=== PATIENT | male | born 1990 | race Two or more races ===

== ENCOUNTER 2021-05-23 10:18 | Inpatient (IN) | payer OTHER ==
[~2021-05-23] VITALS: Ht 170.2 cm; Wt 67.8 kg
[2021-05-23] MEDS ORDERED: PEG 3350/NA SULF,BICARB,CL/KCL 4000 ML SOLUTION PO ONE (13:15)
[2021-05-23 13:30] LABS: BASOPHILS % (AUTO) 0.2 % (0.0-2.0); EOSINOPHILS % (AUTO) 0.3 % (1.0-6.0); HEMATOCRIT 50.4 % (41-53); LYMPHOCYTES # (AUTO) 1.9 K/uL (1.0-4.8); LYMPHOCYTES % (AUTO) 27.1 % (22.0-44.0); MEAN CORPUSCULAR HEMOGLOBIN 31.4 pg (26.0-34.0); MEAN CORPUSCULAR HGB CONC 33.7 G/dL (31.0-37.0); MEAN CORPUSCULAR VOLUME 93 fL (80-100); MONOCYTES # (AUTO) 0.5 K/uL (0.1-1.0); MONOCYTES % (AUTO) 7.2 % (2.0-9.0); NEUTROPHILS # (AUTO) 4.5 K/uL (1.8-7.7); NEUTROPHILS % (AUTO) 65.2 % (40.0-70.0); PLATELET COUNT (AUTO) 224 K/uL (150-450); RED CELL DISTRIBUTION WIDTH 13.5 % (11.5-14.5)
[2021-05-23 13:39] LABS: ANION GAP 8 mmol/L (8-16); CALCIUM, TOTAL 9.4 mg/dL (8.8-10.5); CARBON DIOXIDE 31 mmol/L (22-29); CHLORIDE 102 mmol/L (98-107); CREATININE 1.04 mg/dL (0.60-1.30); GLOMERULAR FILTR. RATE CALC > 60 mL/min (>60); GLUCOSE,RANDOM 95 mg/dL (70-110); POTASSIUM 4.8 mmol/L (3.5-5.1); SODIUM SERUM 141 mmol/L (136-145); UREA NITROGEN, BLOOD 14 mg/dL (7-18)
[2021-05-23 13:45] LABS: COVID AG,FIA SOURCE NASOPHARYNGEAL
[2021-05-23 13:45] LABS: ALANINE AMINOTRANSFERASE 32 U/L (12-78); ALKALINE PHOSPHATASE 138 U/L (46-116); ASPARTATE AMINOTRANSFERASE 21 U/L (15-37)
[2021-05-23] MEDS ORDERED: ONDANSETRON HCL 4 MG/2 ML VIAL IVP PRN (13:45)
[2021-05-23] MEDS ORDERED: 0.9% SODIUM CHLORIDE 10 ML SYRINGE IVP PRN (13:45)
[2021-05-23] MEDS ORDERED: ACETAMINOPHEN 325 MG TABLET PO PRN (13:45)
[2021-05-23 13:46] LABS: ACETAMINOPHEN < 2 mcg/mL (10-30)
[2021-05-23 13:56] LABS: SALICYLATE 1.4 mg/dL (2.8-20.0)
[2021-05-23] MEDS: RINGERS SOLUTION,LACTATED 1,000 ML IV SCH (14:40)
[2021-05-23 16:15] VITALS: BP 117/75
[2021-05-23 19:30] VITALS: BP 119/66
[2021-05-23 22:57] VITALS: BP 116/64
[2021-05-24] MEDS: RINGERS SOLUTION,LACTATED 1,000 ML IV SCH ×2 (00:04→10:10)
[2021-05-24 04:47] VITALS: BP 116/78
[2021-05-24 06:45] LABS: AMPHET/METH SCREEN,URINE POSITIVE (NEGATIVE); BARBITURATE SCREEN, URINE NEGATIVE (NEGATIVE); BENZODIAZEPINES SCREEN,URINE NEGATIVE (NEGATIVE); CANNABINOID SCREEN,URINE NEGATIVE (NEGATIVE); COCAINE SCREEN,URINE NEGATIVE (NEGATIVE); METHADONE SCREEN, URINE NEGATIVE (NEGATIVE); OPIATE SCREEN,URINE NEGATIVE (NEGATIVE)
[2021-05-24 06:47] LABS: PHENCYCLIDINE SCREEN,URINE NEGATIVE (NEGATIVE)
[2021-05-24 07:53] VITALS: BP 108/67
[2021-05-24] MEDS ORDERED: MAGNESIUM HYDROXIDE SUSPENSION 30 ML UDCUP PO SCH (11:00)
[2021-05-24] MEDS ORDERED: POLYETHYLENE GLYCOL 3350 17 GM PACKET PO SCH (11:00)
[2021-05-24] MEDS ORDERED: BISACODYL 10 MG RECTAL RECTAL SUPPOSITORY PR PRN (11:00)
[2021-05-24] MEDS ORDERED: DOCUSATE SODIUM 100 MG CAPSULE PO SCH (11:00)
[2021-05-24 15:34] VITALS: BP 108/56
[2021-05-24] MEDS ORDERED: LOPERAMIDE HCL 2 MG CAPSULE PO PRN (16:15)
[2021-05-24 19:50] VITALS: BP 102/58
[2021-05-25 04:15] VITALS: BP 114/57
[2021-05-25] MEDS: RINGERS SOLUTION,LACTATED 1,000 ML IV SCH ×2 (05:51→17:59)
[2021-05-25 07:53] VITALS: BP 102/62
[2021-05-25] MEDS ORDERED: SODIUM CHLORIDE 0.9% 100 ML ONE (08:28)
[2021-05-25] MEDS ORDERED: IOHEXOL 350 MG/ML 100 ML VIAL ONE (08:28)
[2021-05-25 20:04] VITALS: BP 111/68
[2021-05-26 04:00] VITALS: BP 103/62
== END 2021-05-26 07:51 | DRG 395 ==
LOC: EMS 10:22 → 5S 14:45 → 6S 20:20
PROVIDERS: ADMIT Internal Medicine; ATTEND Internal Medicine
DX: T18.9XXA Foreign body of alimentary tract, part unspecified, initial encounter (principal); F15.10 Other stimulant abuse, uncomplicated; K59.00 Constipation, unspecified; F19.10 Other psychoactive substance abuse, uncomplicated; N20.0 Calculus of kidney; Z20.822 Contact with and (suspected) exposure to COVID-19; X58.XXXA Exposure to other specified factors, initial encounter; Y93.89 Activity, other specified; Y92.89 Other specified places as the place of occurrence of the external cause; Y99.8 Other external cause status
CPT/HCPCS: 74018; 74176; 74177; 80053; 85025; 93005; 99285; A9575; G0480; G0481; J7050; J7120; 36415-L1; 36415-TC